=== PATIENT | male | born 1965 | race Asian ===

== ENCOUNTER 2022-07-22 06:38 | Inpatient (IN) | payer OTHER ==
[~2022-07-22] VITALS: Ht 162.6 cm; Wt 86.8 kg
[~2022-07-22 06:38] MED LIST: ASCO100033 PO; ASPI-556 PO; CA C1TAB74 PO; NAPR220C15 PO; OMEG-148 PO; RANI-379 PO; TUMERIC PO; WITC1MED4 TP; ZINC30TA2 PO
[2022-07-22] MEDS ORDERED: 0.9%NACL 1000ML 1,000 ML IV ONE (07:00)
[2022-07-22] MEDS ORDERED: ONDANSETRON 4MG INJ IVP ONE ×2 (07:00→09:00)
[2022-07-22 07:16] LABS: BASOPHILS % (AUTO) 1.1 % (0.0-5.0); EOSINOPHILS % (AUTO) 3.9 % (0.0-8.0); HEMATOCRIT 48.4 % (42-54); MEAN CORPUSCULAR HEMOGLOBIN 31.2 pg (27.0-33.0); MEAN CORPUSCULAR HGB CONC 33.7 g/dL (32.0-36.0); MEAN CORPUSCULAR VOLUME 92.7 fL (79-99); MONOCYTES % (AUTO) 9.3 % (3.0-13.0); PLATELET COUNT (AUTO) 259 K/uL (130-400); RED BLOOD CELL COUNT(AUTO) 5.22 MIL/uL (4.50-6.20); RED CELL DISTRIBUTION WIDTH 13.2 % (11.0-15.5); WHITE BLOOD COUNT (AUTO) 13.4 K/uL (4.8-10.8)
[2022-07-22 07:29] LABS: INR 0.93 (0.85-1.15); PROTHROMBIN TIME 9.3 SEC (9.6-11.6)
[2022-07-22 07:30] LABS: PARTIAL THROMBOPLASTIN TIME 25.4 SEC (26.3-35.5)
[2022-07-22 07:56] LABS: ALBUMIN 3.8 g/dL (3.5-5.0); CREATININE 1.1 mg/dL (0.5-1.5); POTASSIUM 3.2 mmol/L (3.5-5.1); TOTAL PROTEIN, SERUM 7.2 g/dL (6.0-8.3)
[2022-07-22] MEDS ORDERED: CEFTRIAXONE 2GM VIAL IVP STA (08:07)
[2022-07-22] MEDS ORDERED: POTASSIUM BICARB/CIT AC 25 MEQ TABLET.EFF PO STA (08:08)
[2022-07-22] MEDS ORDERED: ONDANSETRON 4MG INJ ONE (08:49)
[2022-07-22 09:18] LABS: MAGNESIUM 2.1 mg/dL (1.80-2.40)
[2022-07-22] MEDS ORDERED: IOHEXOL 350 MG/ML 100ML INFUS..BTL IV ONE (10:21)
[2022-07-22] MEDS ORDERED: ACETAMINOPHEN 325 MG TAB PO PRN ×2 (13:00)
[2022-07-22] MEDS ORDERED: LIDOCAINE HCL-MPF 1% 2ML VIAL IV PRN (13:00)
[2022-07-22] MEDS ORDERED: ACETAMINOPHEN WITH CODEINE 1 TAB TAB PO PRN ×2 (13:00)
[2022-07-22] MEDS ORDERED: PROMETHAZINE HCL 25 MG/ML 1ML AMPULE IM ONE (13:00)
[2022-07-22] MEDS ORDERED: POTASSIUM CHLORIDE 20MEQ/100ML 100 ML IV PRN (13:00)
[2022-07-22 13:10] LABS: APPEARANCE,URINE CLEAR (CLEAR); BILIRUBIN,URINE NEGATIVE (NEGATIVE); COLOR,URINE YELLOW (YELLOW); GLUCOSE, URINE (UA) NEGATIVE (NEGATIVE); KETONES,URINE NEGATIVE (NEGATIVE); LEUKOCYTE ESTERASE ,URINE NEGATIVE (NEGATIVE); NITRATE,URINE NEGATIVE (NEGATIVE); OCCULT BLOOD,URINE NEGATIVE (NEGATIVE); PROTEIN,URINE NEGATIVE (NEGATIVE); UROBILINOGEN,URINE 0.2 mg/dL (0.2-1.0)
[2022-07-22 13:19] LABS: BACTERIA,URINE Rare /HPF (None Seen); RBC,URINE 0-1 /HPF (0-1); SQUAMOUS EPITHELIAL CELL,UR Rare /HPF (0-2); WBC,URINE 0-1 /HPF (0-1)
[2022-07-22 13:20] LABS: CALCIUM OXALATE CRYSTALS,UR Few /LPF (None Seen)
[2022-07-22] MEDS: 0.9%NACL 1000ML 1,000 ML IV SCH ×2 (13:20→23:00)
[2022-07-22] MEDS ORDERED: PROMETHAZINE HCL 25 MG TABLET PO PRN (15:30)
[2022-07-22] MEDS ORDERED: PROMETHAZINE HCL 25 MG/ML 1ML AMPULE IM PRN (18:00)
[2022-07-22] MEDS: FAMOTIDINE 20MG VIAL IV SCH (20:37)
[2022-07-22] MEDS: ONDANSETRON 4MG INJ IV PRN (20:46)
[2022-07-22 21:20] VITALS: BP 110/69
[2022-07-22] MEDS ORDERED: OMEP20TA2 PO (22:39)
[2022-07-23] VITALS (7 sets, daily range): BP systolic 95–117; BP diastolic 51–66
[2022-07-23] MEDS: 0.9%NACL 1000ML 1,000 ML IV SCH ×2 (04:39→20:34)
[2022-07-23 06:09] LABS: BASOPHILS % (AUTO) 0.2 % (0.0-5.0); EOSINOPHILS % (AUTO) 2.6 % (0.0-8.0); HEMATOCRIT 44.8 % (42-54); LYMPHOCYTES % (AUTO) 4.8 % (21.0-51.0); MEAN CORPUSCULAR HEMOGLOBIN 30.9 pg (27.0-33.0); MEAN CORPUSCULAR HGB CONC 34.2 g/dL (32.0-36.0); MEAN CORPUSCULAR VOLUME 90.5 fL (79-99); MONOCYTES % (AUTO) 1.9 % (3.0-13.0); NEUTROPHILS % (AUTO) 90.2 % (40.0-77.0); PLATELET COUNT (AUTO) 270 K/uL (130-400); RED BLOOD CELL COUNT(AUTO) 4.95 MIL/uL (4.50-6.20); RED CELL DISTRIBUTION WIDTH 13.5 % (11.0-15.5); WHITE BLOOD COUNT (AUTO) 11.7 K/uL (4.8-10.8)
[2022-07-23 06:49] LABS: ALBUMIN 3.2 g/dL (3.5-5.0); POTASSIUM 3.8 mmol/L (3.5-5.1); TOTAL PROTEIN, SERUM 6.1 g/dL (6.0-8.3)
[2022-07-23] MEDS: CEFTRIAXONE 1G VIAL IVP SCH ×2 (06:54→18:35)
[2022-07-23] MEDS: ONDANSETRON 4MG INJ IV PRN (06:59)
[2022-07-23] MEDS: ENOXAPARIN SODIUM 30 MG/0.3 ML SQ SCH (09:18)
[2022-07-23] MEDS: FAMOTIDINE 20MG VIAL IV SCH ×2 (09:18→20:34)
[2022-07-24 04:20] VITALS: BP 133/53
[2022-07-24] MEDS: CEFTRIAXONE 1G VIAL IVP SCH (05:28)
[2022-07-24] MEDS: 0.9%NACL 1000ML 1,000 ML IV SCH (05:29)
[2022-07-24 07:11] VITALS: BP 113/70
[2022-07-24 09:33] LABS: BASOPHILS % (AUTO) 0.3 % (0.0-5.0); EOSINOPHILS % (AUTO) 9.2 % (0.0-8.0); LYMPHOCYTES % (AUTO) 13.9 % (21.0-51.0); MEAN CORPUSCULAR HGB CONC 33.8 g/dL (32.0-36.0); MEAN CORPUSCULAR VOLUME 91.6 fL (79-99); MONOCYTES % (AUTO) 7.8 % (3.0-13.0); NEUTROPHILS % (AUTO) 68.5 % (40.0-77.0); PLATELET COUNT (AUTO) 238 K/uL (130-400); RED BLOOD CELL COUNT(AUTO) 4.91 MIL/uL (4.50-6.20); RED CELL DISTRIBUTION WIDTH 13.5 % (11.0-15.5); WHITE BLOOD COUNT (AUTO) 10.8 K/uL (4.8-10.8)
[2022-07-24 09:46] LABS: ALBUMIN 3.5 g/dL (3.5-5.0); CREATININE 1.1 mg/dL (0.5-1.5); POTASSIUM 3.6 mmol/L (3.5-5.1); TOTAL PROTEIN, SERUM 6.9 g/dL (6.0-8.3)
[2022-07-24] MEDS: FAMOTIDINE 20MG VIAL IV SCH (09:59)
[2022-07-24] MEDS: ENOXAPARIN SODIUM 30 MG/0.3 ML SQ SCH ×2 (10:00→10:01)
[2022-07-24 12:14] VITALS: BP 127/75
[2022-07-24] MEDS ORDERED: ATOR40TA69 PO (15:02)
[2022-07-24] MEDS ORDERED: ASPI-1012 PO (15:02)
[2022-07-24] MEDS ORDERED: CLOP75TA32 PO (15:03)
== END 2022-07-24 16:05 | disposition home or self-care (01) | DRG 872 ==
LOC: EDH 06:38 → EDHIP 12:38 → OBSVTOIN 12:38 → 3AH 21:10
PROVIDERS: ADMIT Hospitalist; ATTEND Hospitalist
DX: A41.9 Sepsis, unspecified organism (principal); E87.6 Hypokalemia; K52.9 Noninfective gastroenteritis and colitis, unspecified; I95.9 Hypotension, unspecified; I25.2 Old myocardial infarction; Z83.3 Family history of diabetes mellitus; Z82.5 Family history of asthma and other chronic lower respiratory diseases; Z82.49 Family history of ischemic heart disease and other diseases of the circulatory system; Z82.3 Family history of stroke; Z82.0 Family history of epilepsy and other diseases of the nervous system
CPT/HCPCS: 36415; 70450; 70547; 70551; 71045; 74177; 80053; 81001; 82550; 83605; 83735; 84132; 84484; 85025; 85610; 85730; 86850; 86900; 86901; 92522; 92610; 93005; 93880; G0378; J0696; J1650; J2405; J2550; J3490; J7030; Q9967

== ENCOUNTER → 2022-08-12 | Outpatient (CLI) | payer OTHER ==
[~2022-08-12] MED LIST changes: +ASPI-1012 PO; -ASPI-556 PO; +ATOR40TA69 PO; +CLOP75TA32 PO; -NAPR220C15 PO; +OMEP20TA2 PO; -RANI-379 PO; -TUMERIC PO; -WITC1MED4 TP
== END | disposition home or self-care (01) ==
LOC: RAH 13:31
PROVIDERS: ATTEND Internal Medicine Cardiovascular Disease
DX: I51.7 Cardiomegaly (principal); I63.40 Cerebral infarction due to embolism of unspecified cerebral artery; I35.0 Nonrheumatic aortic (valve) stenosis; N18.9 Chronic kidney disease, unspecified
CPT/HCPCS: 93306; 96374

== ENCOUNTER 2022-10-02 06:27 | Day surgery (SDC) | payer OTHER ==
[2022-09-29 16:06] LABS: BASOPHILS % (AUTO) 1.1 % (0.0-5.0); EOSINOPHILS % (AUTO) 4.2 % (0.0-8.0); HEMATOCRIT 49.4 % (42-54); MEAN CORPUSCULAR HEMOGLOBIN 30.3 pg (27.0-33.0); MEAN CORPUSCULAR HGB CONC 32.6 g/dL (32.0-36.0); MONOCYTES % (AUTO) 9.9 % (3.0-13.0); NEUTROPHILS % (AUTO) 60.5 % (40.0-77.0); PLATELET COUNT (AUTO) 308 K/uL (130-400); RED BLOOD CELL COUNT(AUTO) 5.31 MIL/uL (4.50-6.20); RED CELL DISTRIBUTION WIDTH 13.2 % (11.0-15.5); WHITE BLOOD COUNT (AUTO) 9.1 K/uL (4.8-10.8)
[2022-09-29 16:15] LABS: POTASSIUM 4.7 mmol/L (3.5-5.1)
[2022-09-29 16:18] LABS: INR 0.93 (0.85-1.15); PROTHROMBIN TIME 10.2 SEC (9.6-11.6)
[2022-09-29 16:19] LABS: PARTIAL THROMBOPLASTIN TIME 32.8 SEC (26.3-35.5)
[2022-10-01 09:27] VITALS: BP 119/76
[2022-10-02] VITALS (27 sets, daily range): BP systolic 100–123; BP diastolic 47–83
[~2022-10-02] VITALS: Ht 162.6 cm; Wt 81.6 kg
[~2022-10-02 06:27] MED LIST changes: +0.9%NACL 1000ML 1,000 ML IV SCH; -ATOR40TA69 PO; -CA C1TAB74 PO; +CHOL2000 PO; +MULT-1258 PO; +NAPR220T57 PO; +OMEP-91 PO; -OMEP20TA2 PO; +ROSU40TA21 PO; +ZINC220T4 PO; -ZINC30TA2 PO
[2022-10-02] MEDS ORDERED: MIDAZOLAM HCL 1 MG/ML 2ML VIAL ONE (06:43)
[2022-10-02] MEDS ORDERED: FENTANYL CITRATE PF 50 MCG/1 ML 2ML VIAL ONE (06:44)
[2022-10-02] MEDS ORDERED: NALOXONE HCL 0.4 MG/1 ML ML ONE (06:47)
[2022-10-02] MEDS ORDERED: FLUMAZENIL 0.1MG/1ML 5ML VIAL IV ONE (06:48)
[2022-10-02] MEDS ORDERED: LIDOCAINE HCL 2% VISCOUS 15 ML UDCUP ONE (06:54)
== END 2022-10-02 11:00 | disposition home or self-care (01) ==
LOC: DAH 06:27
PROVIDERS: ATTEND Internal Medicine Cardiovascular Disease
DX: Q21.12 Patent foramen ovale (principal); I45.10 Unspecified right bundle-branch block; Z79.01 Long term (current) use of anticoagulants; Z86.73 Personal history of transient ischemic attack (TIA), and cerebral infarction without residual deficits; Z79.82 Long term (current) use of aspirin; Z79.899 Other long term (current) drug therapy
CPT/HCPCS: 36415; 80048; 85025; 85610; 85730; 93005; 93312; 96374; 99152; 99153; A4606; J2250; J2310; J3010; J3490; J7030

== ENCOUNTER 2024-12-02 17:37 | Emergency (ER) | payer OTHER ==
[~2024-12-02] VITALS: Ht 162.6 cm; Wt 80.7 kg
[~2024-12-02 17:37] MED LIST changes: -0.9%NACL 1000ML 1,000 ML IV SCH; -ROSU40TA21 PO; +ROSU40TA88 PO
[2024-12-02 18:04] LABS: BASOPHILS # (AUTO) 0.08 K/uL (0.00-0.20); BASOPHILS % (AUTO) 0.7 % (0.0-5.0); EOSINOPHILS # (AUTO) 0.29 K/uL (0.00-0.70); EOSINOPHILS % (AUTO) 2.5 % (0.0-8.0); HEMATOCRIT 47.2 % (42-54); IMMATURE GRANULOCYTE ABSOLUTE 0.03 K/uL (0-1); LYMPHOCYTES # (AUTO) 1.2 K/uL (1.0-4.8); LYMPHOCYTES % (AUTO) 10.2 % (21.0-51.0); MEAN CORPUSCULAR HEMOGLOBIN 31.8 pg (27.0-33.0); MEAN CORPUSCULAR HGB CONC 34.5 g/dL (32.0-36.0); MONOCYTES % (AUTO) 8.9 % (3.0-13.0); NEUTROPHILS # (AUTO) 8.9 K/uL (1.8-7.7); NEUTROPHILS % (AUTO) 77.4 % (40.0-77.0); PLATELET COUNT (AUTO) 293 K/uL (130-400); RED BLOOD CELL COUNT(AUTO) 5.13 MIL/uL (4.50-6.20); RED CELL DISTRIBUTION WIDTH 13.2 % (11.0-15.5); WHITE BLOOD COUNT (AUTO) 11.5 K/uL (4.8-10.8)
--- NOTE | 2024-12-02 18:31 | HMCIMG ---
CHEST 1VW REASON: cough/congestion COMPARISON: 07/22/2022 FINDINGS: Single view of the chest was obtained. Lungs are clear. Heart size is normal. There is no pulmonary vascular congestion. Mediastinum and bony thorax appear unremarkable. IMPRESSION: 1. Normal single view chest x-ray.
--- NOTE | 2024-12-02 18:38 | ERN ---
General Chief Complaint: Cough Stated Complaint: COUGH, BODY ACHES X 5 DAYS Time Seen by MD: 17:43 Time Seen by Midlevel: 17:43 Source: patient History of Present Illness Initial Comments Patient is a 59-year-old male presenting to the emergency department with cough, congestion, and body aches that have been ongoing for the last five days. Patient was seen by his primary care doctor who advised him to report to the ER for blood work and a chest x-ray. Patient has no other concerns at this time. Patient does report working at [employer] and states he has been exposed to a lot of RSV. He performed a influenza a, influenza B, and COVID-19 home test which was negative today. Allergies: Coded Allergies: shellfish derived (Unverified Allergy, Severe, 07/10/15) oyster extract (Unverified Allergy, Unknown, 10/01/22) Home Meds Active Scripts Clopidogrel Bisulfate (Clopidogrel) 75 Mg Tablet, 75 MG PO DAILY, #30 TAB Prov:[facility] SOL[facility]IO [facility] 07/24/22 Aspirin (ASPIRIN) 325 Mg Tablet, 325 MG PO DAILY, #30 TAB Prov:[facility] 07/24/22 Reported Medications Rosuvastatin Calcium (Rosuvastatin Calcium) 40 Mg Tablet, 40 MG PO DAILY, TAB 10/01/22 Cholecalciferol (Vitamin D3) (Vitamin D3) 50 Mcg Capsule, 50 MCG PO DAILY, CAP 10/01/22 Multivits-Min/FA/Lycopene/Lut (Centrum Silver Tablet) 1 Each Tablet, 1 EACH PO DAILY, TAB 10/01/22 Naproxen Sodium (Aleve) 220 Mg Tablet, 220 MG PO [id number] PRN for PAIN, TAB 10/01/22 Famotidine (Zantac-360 (Famotidine)) 10 Mg Tablet, 10 MG PO BID PRN for heartburn, TAB 10/01/22 Zinc Sulfate (Zinc) 50 Mg Tablet, 50 MG PO DAILY, TAB 10/01/22 Vichy-3S/Dha/Epa/Fish Oil (Fish Oil 1,000 mg Softgel) 1 Each Capsule, 1 EACH PO DAILY, CAP 09/04/20 Ascorbic Acid (Vitamin C) 1,000 Mg Tablet.er, 1000 MG PO BID, TAB 09/04/20 Past Medical History Past Medical History: High Cholesterol, Stroke Past Surgical History: Appendectomy Social History Social History: Negative ROS Dictation CONSTITUTIONAL: Negative except for HPI HEAD/FACE: Negative except for HPI EENT: Negative except for HPI RESPIRATORY: Negative except for HPI GASTROINTESTINAL/ABDOMINAL: Negative except for HPI GENITOURINARY: Negative except for HPI MUSCULOSKELETAL: Negative except for HPI INTEGUMENTARY: Negative except for HPI NEUROLOGICAL/PSYCH: Negative except for HPI HEMATOLOGIC/LYMPHATIC: Negative except for HPI All Systems Negative, Except as noted above. 13 point review of systems assessed and all negative except for above. Physical Exam Physical Exam Dictation Vital Signs reviewed General Appearance: Alert, oriented x 3, no acute distress, well developed, nourished. Head and Face: non-traumatic. Eyes: PERRL, pink conjunctivas, eyelid no trauma, anterior chamber with arcus senilis. Ears: Pinnas intact and no signs of trauma or erythema ear canals clear and no discharge TM no erythema Nose: No discharge, no bleeding. Oropharynx: Mouth normal, tongue pink, pharynx clear,no erythema, tonsils no exudates, no abscesses noted, mucous membrane moist Neck: Supple, non-tender, no thyromegaly, no masses, no JVD, no bruits Breast:Deferred Chest:No tenderness, no crepitus, no paradoxical movement, no retractions Lungs:Clear, well-ventilated, symmetric, no rales, no wheezing, no rhonchi, no stridor, good breath sounds bilaterally Heart: Regular rate, regular rhythm, no murmur, no gallops Vascular: no peripheral edema, Abdomen: Soft, positive bowel sounds, nondistended, no guarding, nontender, no rebound, no masses no hepatomegaly, no splenomegaly, no Pacheco's sign, no hernias. Rectal: Deferred Genital: Deferred Neurological: Normal speech, motor function intact, sensory function intact Musculoskeletal: Neck nontender, full range of motion, back nontender, full range of motion, Extremities: nontender, full range of motion Skin: Color pink, dry, no turgor, no rash, no lacerations, no abrasions, no contusions. Lymphatic: Deferred Results Laboratory and Microbiology Lab and Micro Result Laboratory Tests Test 12/02/24 17:58 12/02/24 18:31 White Blood Count 11.5 K/uL (4.8-10.8) H Red Blood Count 5.13 MIL/uL (4.50-6.20) Hemoglobin 16.3 g/dL (14.0-18.0) Hematocrit 47.2 % (42-54) Mean Corpuscular Volume 92.0 fL (79-99) Mean Corpuscular Hemoglobin 31.8 pg (27.0-33.0) Mean Corpuscular Hemoglobin Concent 34.5 g/dL (32.0-36.0) Red Cell Distribution Width 13.2 % (11.0-15.5) Platelet Count 293 K/uL (130-400) Mean Platelet Volume 10.3 fL (7.5-10.5) Immature Granulocyte % (Auto) 0.3 % (0-1) Neutrophils (%) (Auto) 77.4 % (40.0-77.0) H Lymphocytes (%) (Auto) 10.2 % (21.0-51.0) L Monocytes (%) (Auto) 8.9 % (3.0-13.0) Eosinophils (%) (Auto) 2.5 % (0.0-8.0) Basophils (%) (Auto) 0.7 % (0.0-5.0) Neutrophils # (Auto) 8.9 K/uL (1.8-7.7) H Lymphocytes # (Auto) 1.2 K/uL (1.0-4.8) Monocytes # (Auto) 1.0 K/uL (0.1-1.0) Eosinophils # (Auto) 0.29 K/uL (0.00-0.70) Basophils # (Auto) 0.08 K/uL (0.00-0.20) Absolute Immature Granulocyte (auto 0.03 K/uL (0-1) Nucleated Red Blood Cells 0.0 % (0.0-0.19) Sodium Level 144 mmol/L (136-145) Potassium Level 4.2 mmol/L (3.5-5.1) Chloride Level 106 mmol/L (101-111) Carbon Dioxide Level 32 mmol/L (21-32) Blood Urea Nitrogen 10 mg/dL (7-18) Creatinine 1.0 mg/dL (0.5-1.3) Glomerular Filtration Rate Calc 86 mL/min (>90) Random Glucose 82 mg/dL (70-105) Total Calcium 10.1 mg/dL (8.5-10.1) Labs Reviewed?: Yes MDM MDM: Differential diagnosis: Pneumonia, viral syndrome, upper respiratory infection, pneumonitis There are no social concerns with this patient. Prescription drug management Prescriptions will include: None Medical management and examination interpretation discussions were had by me with other qualified healthcare professionals as indicated for the patient's care. ED Course Orders Procedure Category Date Status Time Cbc With Differential LAB 12/02/24 Complete 17:49 Chest 1vw RAD 12/02/24 Resulted 17:49 Basic Metabolic Panel LAB 12/02/24 Complete 18:24 Vital Signs Date Time Temp Pulse Resp B/P (MAP) Pulse Ox O2 Delivery O2 Flow Rate FiO2 12/02/24 18:02 99.0 78 14 131/67 98 Room Air* 0 21 12/02/24 17:38 98.1 119 16 135/77 99 Room Air 0 DX & DISP Disposition: Discharge Departure Impression: Primary Impression: Viral syndrome Condition: Stable Additional Instructions: Your blood work today is unremarkable. Your chest x-ray does not show any evidence of pneumonia. Please follow up with your primary care doctor in 2-3 days for repeat evaluation. Return to the ER for any new or worsening symptoms. Referrals: CARL ADLER MD (PCP) Time of Disposition: 19:11 I have reviewed the case, and I agree with, Diagnosis and Plan I performed the substantive portion of the visit. I have reviewed and personally made and approve the management plan that is documented in the note by myself or the CHRIS. I acknowledge for responsibility for the patient's management plan. BERT MARINELLI Dec 02, 2024 18:38
[2024-12-02 19:00] LABS: POTASSIUM 4.2 mmol/L (3.5-5.1)
[2024-12-02 19:19] VITALS: BP 124/68; PULSE 71; RESP 16; TEMP 98.1; O2SAT 98
== END 2024-12-02 19:19 | disposition home or self-care (01) ==
LOC: EDH 17:37
DX: B34.9 Viral infection, unspecified (principal); E78.00 Pure hypercholesterolemia, unspecified; Z79.02 Long term (current) use of antithrombotics/antiplatelets; Z79.82 Long term (current) use of aspirin; Z79.899 Other long term (current) drug therapy; Z86.73 Personal history of transient ischemic attack (TIA), and cerebral infarction without residual deficits; Z90.49 Acquired absence of other specified parts of digestive tract
CPT/HCPCS: 36415; 71045; 80048; 85025; 99284

== ENCOUNTER 2025-09-13 08:06 | Day surgery (SDC) | payer OTHER ==
[~2025-09-13] VITALS: Ht 162.6 cm; Wt 77.1 kg
[2025-09-13] VITALS (10 sets, daily range): BP systolic 99–132; BP diastolic 57–80; PULSE 73–86; RESP 14–16; TEMP 97.1–97.7
[2025-09-13] MEDS ORDERED: ROSU20TA98 PO (09:36)
[2025-09-13] MEDS: 0.9%NACL 1000ML 1,000 ML IV ONE (09:38)
--- NOTE | 2025-09-13 13:05 | NUR ---
Full and complete discharge instructions given to Patient and Family both verbally and in writing. Explained GI procedure precautions and follow up. All questions answered. PIV removed with catheter tip intact. Family at bedside appearing supportive. W/C to POV with Family to home
== END 2025-09-13 12:55 | disposition home or self-care (01) ==
LOC: ENDO 08:06 → DAH 08:06 → ENDO 12:55
PROVIDERS: ATTEND Internal Medicine Gastroenterology
DX: K59.00 Constipation, unspecified (principal); D12.8 Benign neoplasm of rectum; K63.5 Polyp of colon; K64.0 First degree hemorrhoids; K57.30 Diverticulosis of large intestine without perforation or abscess without bleeding; Z79.01 Long term (current) use of anticoagulants; Z79.899 Other long term (current) drug therapy; Z90.49 Acquired absence of other specified parts of digestive tract
CPT/HCPCS: 45380; 45385; J7030; J2704; A4620; A4215; A7002; J3490